=== PATIENT | female | born 2000 | race Hispanic/Latino ===

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

== ENCOUNTER 2019-05-31 11:39 | Inpatient (IN) | payer MEDICAID, SELFPAY ==
[~2019-05-31 11:39] MED LIST: Bupivacaine 0.25% HCL 30 ML VIAL ONE
--- NOTE | 2019-05-31 13:35 | PDOC.FPROB ---
FMR OB H&P: HPI - History of Present Illness Chief Complaint: Vaginal Spotting, Cramping Indentification: History of Present Illness: Patient is a 19 y/o female at 38.4W EGA by 1st Trimester US who presents to L&D for evaluation of vaginal bleeding. Patient states that she has also noticed very mild vaginal spotting when she wipes following urination since yesterday evening, and thinks that she bleeding has increased slightly in amount. Associated symptoms include lower ABD pain that is characterized as crampy but sporadic, low in intensity, and without radiation. Patient states that she had sexual intercourse with her the previous evening, but denies a loss of movement, gush of fluids, recent trauma, dysuria, new- onset vaginal itching or lesions, and margareth hematuria. Patient states that her course has been uncomplicated thus far. Per chart review, there was concern at her dating US that her cervix was open and may have been incompetent based on her history of 2 1st Trimester SABs, however MFM confirmed via 2nd Trimester US that her cervix was closed and long and that there was no evidence for placenta previa or cervical incompetence. Primary Care Physician: HELGA Muir MD FMR OB H&P: Current - Care : 3 Para: 0020 Gestational age: 38.4 Due date: 06/10/2019 Dating Criteria: LMP c/w 6.4 wk sono Course/Complications: See HPI - OB Labs Blood type: B RH: positive Antibody Screen: negative HIV: negative RPR: negative HepBsAg: negative Rubella: immune Gonorrhea: negative Chlamydia: negative 1 hour gtt: 165 3 hour GTT: 94/168/135/101 A1c: 5.0 GBS: negative H&H: .8 FMR OB H&P: History - Past Medical History PMH: None - OB History OB History: hx of 2 first trimester SAB hx of incompetent cervix-seen by MFM this and had normal cervix, anterior placenta, normal cervical length. Was initially on progesterone but was d/c'd after seeing MFM. - Surgical History Sx History: Surgical Removal of Eyelid Cysts (2018) - Social History Social History: Denies x3 - Family History Family History: HTN (Mother) FMR OB H&P: Medications - Current Home Medications: Medication Instructions Recorded Confirmed Type No Known 05/31/19 05/31/19 History Allergies/Adverse Reactions: Allergies Allergy/AdvReac Type Severity Reaction Status Date / Time No Known Allergies Allergy Verified 05/31/19 12:21 FMR OB H&P: ROS - Review of Systems General: denies: fever/chills, weight/appetite/sleep changes, fatigue Eyes: denies: vision changes, floaters ENT: denies: rhinorrhea, frequent nose bleed Cardiovascular: denies: chest pain Respiratory: denies: shortness of breath Gastrointestinal: reports: cramping. denies: abdominal pain, nausea, vomiting, diarrhea Genitourinary (Female): reports: vaginal bleeding, vaginal pressure. denies: dysuria, hematuria, vaginal discharge Neurologic: denies: syncope, loss of counsciousness Integumentary: denies: itching, lesions FMR OB H&P: Vital Signs - Maternal Vital signs: Vital Signs - First Documented Temp Pulse Resp BP Pulse Ox 98.8 F 104 H 18 124/84 100 05/31/19 12:12 05/31/19 12:12 05/31/19 12:12 05/31/19 12:12 05/31/19 12:12 - Heart Tones Baseline: 160 Variability: moderate Acceleration: present Deceleration: absent Category: category 1 FMR OB H&P: Physical Exam - Physical Exam General: NAD HEENT: normocephalic and atraumatic, PERRLA, EOMI, MMM, conjunctiva clear, no scleral icterus, grossly normal vision, grossly normal hearing, normal nasal mucosa, oropharynx clear Neck: supple, FROM, trachea midline, no LAD Chest: non-tender to palpation, no lesions Breast: symmetric Heart: RRR, normal S1/S2, no murmurs/rubs/gallops, pulses present, no edema General: CTAB, no respiratory distress, good air movement, no rales/rhonchi, no wheezing, no retractions Abdomen: gravid, non-tender, no masses, no hernias Musculoskeletal: pulses present, FROM in all four extremities, no misalignment/ asymmetry, no atrophy Neurological: no clonus, no tremor, no focal deficit Skin: no rash, no jaundice Lymphatic: no unusual bruising or bleeding, no purpura, no petechia, no LAD Psychiatric: intact recent and remote memory, normal mood and affect - Pelvic Exam Vulva: normal hair distribution, no masses, no lesions, normal rugae Cervix: no masses, no lesions SVE: /-1 Mann score: 8 Presentation: Vertex FMR OB H&P: A/P - Problem List (1) Vaginal bleeding during Current Visit: Yes Status: Acute Code(s): O46.90 - ANTEPARTUM HEMORRHAGE, UNSPECIFIED, UNSPECIFIED TRIMESTER (2) Intrauterine Current Visit: Yes Status: Acute Code(s): Z34.90 - ENCNTR FOR SUPRVSN OF NORMAL , UNSP, UNSP TRIMESTER (3) History of spontaneous Current Visit: Yes Status: Acute Code(s): Z87.59 - PERSONAL HISTORY OF COMP OF PREG, CHLDBRTH AND THE PUERP Disposition: Patient is a 19 y/o who presents to L&D for evaluation of vaginal bleeding and abdominal pain. 1. Vaginal Bleeding Affecting -Patient recently had sexual intercourse but denies symptoms suspicious for infection or SROM -Per chart review, no evidence of structural abnormalities noted on previous examinations -Associated with lower ABD cramping -Maternal VSS w/ an unremarkable physical exam -UA: Pending 2. SIUP -Unremarkable course -GBS: Negative -CTX Q2-5M on admission - slowed to Q10M at time of evaluation -Category 1 Tracing -Vertex presentation confirmed via bedside US -Speculum Exam (1329): Unable to fully visualize cervix, minimal blood noted within vaginal vault with mixed mucous throughout -SVE (133): /-1 3. Hx of Multiple SABs -Per chart review, no additional recommendations from M PCP: PNC - Dr. Muir Dispo: Patient is currently stable on L&D for additional observation of vaginal bleeding and lower ABD pain. Will perform additional SVE in 2H in order to assess for cervical change - will alter plan accordingly at that time. Expected LOS < 24H Discussion: Date/Time: 05/31/19 1335 This H&P was discussed with [] and [] who agree with the above documentation and plan. Addendum - Attending - Attending Attestation Date/Time: 06/01/19 0801 I personally evaluated the patient and discussed the management with Dr. De Oliveira yesterday afternoon. I agree with the History, Examination, Assessment and Plan documented above with any addition or exceptions noted below.
[2019-05-31] MEDS ORDERED: hydrALAZINE 20 MG/ML VIAL SLOW IVP PRN ×2 (13:39→19:29)
[2019-05-31 15:13] LABS: Bacteria/HPF None Seen HPF (None Seen); Bilirubin Negative (Negative); Blood, Urine Trace (Negative); Clarity Clear (Clear); Glucose, Urine (Dipstick) Normal (Negative); Leukocyte Negative Leu/uL (Negative); Nitrite Negative (Negative); Protein, Urine (Dipstick) Negative (Neg-Trace); Squamous Epithelial 0-3 HPF (0-3); Urobilinogen Normal mg/dL (Less than 2); WBC/HPF 0-3 HPF (0-3)
--- NOTE | 2019-05-31 16:00 | PDOC.LDPN ---
Labor & Delivery Progress Note - Subjective Subjective: comfortable, no concerns - Objective Vital signs reviewed and normal: yes General: NAD Uterine fundus: non tender Dilation: 5 Effacement: 75% Station: -1 FHT: category 1, variability present, absent or minimal variables [place] contractions every: Q7-10M - Assessment (1) Vaginal bleeding during Code(s): O46.90 - ANTEPARTUM HEMORRHAGE, UNSPECIFIED, UNSPECIFIED TRIMESTER Current Visit: Yes Status: Acute (2) Intrauterine Code(s): Z34.90 - ENCNTR FOR SUPRVSN OF NORMAL , UNSP, UNSP TRIMESTER Current Visit: Yes Status: Acute (3) History of spontaneous Code(s): Z87.59 - PERSONAL HISTORY OF COMP OF PREG, CHLDBRTH AND THE PUERP Current Visit: Yes Status: Acute Plan: continue plan of care -: Labor Check Patient is a 19 y/o who presents to L&D for evaluation of vaginal bleeding and abdominal pain. 1. Vaginal Bleeding Affecting -Patient recently had sexual intercourse but denies symptoms suspicious for infection or SROM -Per chart review, no evidence of structural abnormalities noted on previous examinations -Associated with lower ABD cramping -Maternal VSS w/ an unremarkable physical exam -UA: WNL 2. SIUP -Unremarkable course -GBS: Negative -CTX Q7-10M at this time -Category 1 Tracing -Vertex presentation confirmed via bedside US -Speculum Exam (1330): Unable to fully visualize cervix, minimal blood noted within vaginal vault with mixed mucous throughout -SVE (1330): 4/70/-1 -SVE (1545): 5/70/-1 3. Hx of Multiple SABs -Per chart review, no additional recommendations from [facility] PCP: HELGA - Dr. Muir Dispo: Patient is currently stable on L&D following initial evaluation of vaginal bleeding and lower ABD pain. Cervical change in light of ongoing contractions is indicative of labor progression. Will admit at this time for active management of labor and continue to monitor maternal and vital signs as per above. Expected LOS > 48H.
[2019-05-31] MEDS ORDERED: Ondansetron PF 4 MG/2 ML Vial IVP PRN ×2 (19:29→22:27)
[2019-05-31] MEDS ORDERED: Butorphanol Tartrate 1 MG/ML VIAL SLOW IVP PRN (19:29)
[2019-05-31] MEDS ORDERED: Lidocaine 1% (PF) 30 ML VIAL SC PRN (19:29)
[2019-05-31] MEDS ORDERED: NS / Oxytocin 40 units/1000ml 1,000 ML IV PRN (19:29)
[2019-05-31] MEDS ORDERED: Promethazine HCl 25 MG/ML VIAL IM PRN ×2 (19:29→22:27)
[2019-05-31] MEDS ORDERED: Acetaminophen 500 MG TAB PO PRN (19:29)
[2019-05-31 19:55] LABS: Hemoglobin 12.3 g/dL (12.0-16.0); Mean Corpuscular HGB CONC 34.2 g/dL (32.0-36.0); Mean Corpuscular Hemoglobin 29.2 pg (25.0-35.0); Mean Corpuscular Volume 85.5 fL (78.0-98.0); Mean Platelet Volume 12.6 fL (7.4-10.4); Platelet Count 106 thou/uL (130-400); Red Blood Cell (RBC) Count 4.21 mill/uL (4.00-5.20); White Blood Cell (WBC) Count 11.7 thou/uL (4.8-10.8)
--- NOTE | 2019-05-31 20:23 | PDOC.LDPN ---
Labor & Delivery Progress Note - Subjective Subjective: painful contractions - Objective Vital signs reviewed and normal: yes General: NAD Uterine fundus: palpable contractions SVE: 5.5/-1 FHT: category 1 [place] contractions every: 2-5 min AROM: clear fluid Plan: continue plan of care -: Patient is a 19 y/o Latent Labor transitioning to Active Labor -Unremarkable course -GBS: Negative -CTX Q2-5M at this time and increasing in severity -Category 1 strip -Vertex presentation confirmed via bedside US -SVE (1944): - -AROM with clear fluid 1944 -admit for labor, latent Hx of Multiple SABs -Per chart review, no additional recommendations from M PCP: HELGA - Dr. Muir Dispo: Admit for labor with signs of latent labor transitioning to active labor. Continue routine labor management. Addendum - Attending - Attending Attestation Date/Time: 05/31/192132 I personally evaluated the patient and discussed the management with Dr. Joyce. I agree with the History, Examination, Assessment and Plan documented above with any addition or exceptions noted below.
--- NOTE | 2019-05-31 20:27 | PDOC.LDPN ---
Labor & Delivery Progress Note - Subjective Subjective: comfortable - Objective Vital signs reviewed and normal: yes General: NAD, resting, breathing through contractions Uterine fundus: non tender SVE: /-1 Dilation: 5 Effacement: 75% Station: -1 FHT: category 1, variability present [place] contractions every: 3 min Other exam findings: intact membranes Plan: continue plan of care -: Patient is a 19 y/o #Latent Labor transitioning to Active Labor -Unremarkable course -GBS: Negative -CTX Q3M at this time and increasing in severity -Category 1 strip -Vertex presentation confirmed via bedside US -SVE (1800): -consider AROM at next check, pending if cervical change #Hx of Multiple SABs -Per chart review, no additional recommendations from MFM PCP: HELGA - Dr. Muir Dispo: Stable, continue to monitor for another 2 hours with another check at that time. Patient with signs of latent labor transitioning to active labor. Continue routine labor management.
[2019-05-31 20:32] LABS: Syphilis Antibody Nonreactive (Nonreactive); Syphilis Antibody Index 0.02 S/CO (<1.00 Non-Reactive)
[2019-05-31 20:33] LABS: HBSAg Index 0.22 S/CO (0-0.99); Hep B Surf Ag Non-Reactive S/CO (NonReactive)
[2019-05-31] MEDS ORDERED: Fentanyl 4 mcg/Bup 0.1% Cadd 100 ML ONE (21:11)
[2019-05-31 21:20] VITALS: BMI 25.7
[2019-05-31] MEDS ORDERED: Penicillin G Potassium 5 MILL.UNITS VIAL ONE (21:32)
[2019-05-31] MEDS ORDERED: EPHEDRINE 25 MG/5 ML SYRINGE SLOW IVP PRN (22:27)
[2019-05-31] MEDS ORDERED: Naloxone HCl 0.4 mg/ml Vial IVP PRN ×2 (22:27)
[2019-05-31] MEDS ORDERED: diphenhydrAMINE 50 MG/ML VIAL IVP PRN (22:27)
[2019-05-31] MEDS ORDERED: Acetaminophen 325 MG TAB PO PRN (22:27)
[2019-05-31] MEDS ORDERED: Lactated Ringer's 500 ML IV PRN (22:27)
[2019-05-31] MEDS ORDERED: Fentanyl 4 mcg/Bupivacaine 0.1% Cassette 100 ML EPIDURAL SCH (22:30)
[2019-05-31] MEDS ORDERED: Communication Order-Pharmacy FS SCH (22:30)
[2019-05-31] MEDS: Dextrose 5%-Lactated Ringers 1,000 ML IV SCH (22:41)
[2019-06-01] MEDS ORDERED: NS / Oxytocin 40 units/1000ml 1,000 ML ONE (00:19)
[2019-06-01] MEDS ORDERED: Lidocaine 1% (PF) 30 ML VIAL ONE (00:19)
--- NOTE | 2019-06-01 02:31 | PDOC.LDPN ---
Labor & Delivery Progress Note - Subjective Subjective: comfortable, vaginal pressure - Objective Vital signs reviewed and normal: yes General: NAD, resting, breathing through contractions Uterine fundus: non tender SVE: 2:30 Dilation: 10 Effacement: 100% Station: 1+ FHT: category 1, variability present [place] contractions every: 2 minutes AROM: clear fluid - Assessment (1) Intrauterine Code(s): Z34.90 - ENCNTR FOR SUPRVSN OF NORMAL , UNSP, UNSP TRIMESTER Current Visit: Yes Status: Acute Plan: continue plan of care -: Patient is a 19 y/o @ 38.5 wks Active Labor -Unremarkable course -GBS: Negative -Category 1 strip -SVE 2:30- 10/100/+1 -AROM with clear fluid 1944 -admit for labor, latent Hx of Multiple SABs -Per chart review, no additional recommendations from M
[2019-06-01] MEDS ORDERED: Methylergonovine 0.2 MG/ML VIAL IM PRN (02:32)
[2019-06-01] MEDS ORDERED: Milk Of Magnesia 30 ML UDCUP PO PRN (02:32)
[2019-06-01] MEDS ORDERED: Misoprostol 200 MCG TAB VAG PRN (02:32)
[2019-06-01] MEDS ORDERED: Benzocaine-Menthol 82.5 ML CAN TOP PRN (02:32)
[2019-06-01] MEDS ORDERED: Bisacodyl 10 MG SUPP PR PRN (02:32)
[2019-06-01] MEDS ORDERED: Methylergonovine 0.2 MG TAB PO PRN (02:32)
[2019-06-01] MEDS ORDERED: Lanolin Ointment 7 GM TUBE TOP PRN (02:32)
[2019-06-01] MEDS ORDERED: Preparation H Ointment 57 gram tube RC PRN (02:32)
[2019-06-01] MEDS ORDERED: diphenhydrAMINE 25 MG CAP PO PRN (02:32)
--- NOTE | 2019-06-01 02:37 | PDOC.LDPN ---
Labor & Delivery Progress Note - Subjective Subjective: comfortable, no concerns - Objective Vital signs reviewed and normal: yes General: NAD, resting, breathing through contractions Uterine fundus: non tender SVE: 80/-2 Dilation: 7 Effacement: 75% Station: -2 FHT: category 1, variability present [place] contractions every: 2-3 min Plan: continue plan of care -: Patient is a 19 y/o @ 38.5 wks Active Labor -Unremarkable course -GBS: Negative -Category 1 strip, FHT 140 -SVE 22:30- 80/-2 -AROM with clear fluid 1944 -admit for labor, latent Hx of Multiple SABs -Per chart review, no additional recommendations from MFM Dispo: Stable, next check in about 2 hours. Continue to monitor.
--- NOTE | 2019-06-01 02:39 | PDOC.LDPN ---
Labor & Delivery Progress Note - Subjective Subjective: comfortable, no concerns - Objective Vital signs reviewed and normal: yes General: NAD, resting, breathing through contractions Uterine fundus: non tender SVE: 9/100/0 Dilation: 9 Effacement: 100% Station: 0 FHT: category 1 (FHT 140), variability present [place] contractions every: 2 min Plan: continue plan of care -: Patient is a 19 y/o @ 38.5 wks Active Labor -Unremarkable course -GBS: Negative -Category 1 strip, FHT 140 -SVE 00:15 9/100/0 -AROM with clear fluid 1944 -admit for labor, latent Hx of Multiple SABs -Per chart review, no additional recommendations from MFM Dispo: Stable, next check in about 1 hours. Continue to monitor.
[2019-06-01] MEDS: Dextrose 5%-Lactated Ringers 1,000 ML IV SCH (04:33)
--- NOTE | 2019-06-01 04:41 | DN ---
DATE OF PROCEDURE: 06/01/2019 DELIVERING PHYSICIANS: Include: Dr. Larisa Mello, PGY-1, Dr. Jose L Muir, PGY-3. ATTENDING PHYSICIAN: Andrey Myrick M.D. PROCEDURE PERFORMED: Spontaneous vaginal delivery and also second-degree vaginal repair. ANESTHESIA: Epidural. ESTIMATED BLOOD LOSS: 400. QBL: Pending. PREOPERATIVE DIAGNOSIS: Term intrauterine , in labor. POSTOPERATIVE DIAGNOSES: 1. Term intrauterine , delivered. 2. Term intrauterine , in labor. INDICATIONS: A 19-year-old female, G3, P0-0-2-0, presented in active labor. DELIVERY NOTE: This is a 19-year-old female, G3, P0-0-2-0 at 38 and 5 weeks, who delivered a viable female infant at 0313 hours following an uneventful antepartum course, a vigorous female was delivered over an intact perineum in the occiput anterior position. Anterior shoulder and remainder of the body delivered. No nuchal cord. The head was held down. Mouth and nares were bulb suctioned. Cord clamped and cut and cord blood collected. Placenta delivered intact with 3- vessel cord noted. Fundal massage was performed. The fundus was firm. Cervix and vagina were inspected and there was found to be a second-degree vaginal laceration and also two sidewall lacerations, one on the right and one on the left. Lacerations were noted and repaired with 3-0 chromic suture in the usual fashion with good approximation and hemostasis. went to nursery in good condition for routine care. Apgars were 8 and 9 at 1 and 5 minutes respectively. The patient tolerated delivery well and went to after routine recovery care. Job ID: [id number] Attending addendum: Present for entirety of delivery. [facility] CENTERMaya
[2019-06-01] MEDS: Ibuprofen 800 MG TAB PO SCH ×3 (04:55→22:21)
[2019-06-01] MEDS ORDERED: Adacel (T-DAP) 0.5 ML SYRINGE IM ONE (09:00)
[2019-06-01] MEDS: Docusate Calcium (SURFAK) 240 MG CAP PO SCH ×2 (10:41→22:21)
[2019-06-01] MEDS: Ferrous Sulfate 325 MG TAB PO SCH ×2 (10:41→15:10)
[2019-06-01] MEDS: Prenatal Vitamin 1 TAB PO SCH (10:41)
[2019-06-02] MEDS: Ibuprofen 800 MG TAB PO SCH ×2 (06:33→13:18)
--- NOTE | 2019-06-02 07:13 | PDOC.PP ---
Post Progress Note Post Day #: 1 Subjective: Pt doing well. Reports pain well controlled. tolerating PO. Denies any n/v/d/c. Denies any fever or chills. Denies any chest pain, SOB or leg swelling. Reports lochia normal PO intake tolerated: yes Flatus: yes Ambulation: yes Weight Weight 61.689 kg - Physical Examination General: NAD Cardiovascular: no m/r/g, RRR Respiratory: clear to auscultation bilaterally, non-labored breathing Abdominal: + bowel sounds, lochia (reported same as normal period), no distention, appropriately TTP Fundus firm & at: umbilicus Extremities: negative homans (B) Perineum: Intact, No swelling or drainage noted Neurological: no gross focal deficits Psychiatric: A&Ox3, normal affect Result Diagrams: 05/31/19 19:39 Additional Labs: Post Labs Blood Type B POSITIVE 05/31/19 19:39 Hep Bs Antigen Non-Reactive S/CO (NonReactive) 05/31/19 19:39 (1) Intrauterine Code(s): Z34.90 - ENCNTR FOR SUPRVSN OF NORMAL , UNSP, UNSP TRIMESTER Status: Resolved - Assessment/Plan 19 yo ->1 delivered KIRAN Morejon via on 06/01/19 @ 3:13. Had 2nd degree perineal laceration and 2 vaginal sidewall lacs. Post -Routine post care. -Perineum intact. No sign of drainage, redness or swelling. -Pain well controlled. Continue current regimen. -- consulted dispo: New time mother. Mayankior for 48 hours pp. D/C likely tmrw. Addendum - Attending - Attending Attestation Date/Time: 06/02/19 1210 I personally evaluated the patient. I agree with the History, Examination, Assessment and Plan documented above with any addition or exceptions noted below.
[2019-06-02] MEDS: Prenatal Vitamin 1 TAB PO SCH (09:38)
[2019-06-02] MEDS: Docusate Calcium (SURFAK) 240 MG CAP PO SCH (09:39)
[2019-06-02] MEDS: Ferrous Sulfate 325 MG TAB PO SCH ×2 (09:39→17:33)
[2019-06-02 11:44] VITALS: BP 109/63; TEMP 98.6
== END 2019-06-02 18:51 | disposition home or self-care (01) | DRG 807 ==
LOC: L&D/OP 11:39 → L&D-LIB 19:56 → 3SE 06-01 11:58
PROVIDERS: ADMIT Family Medicine; ATTEND Family Medicine
PROC: 10907ZC Drainage of Amniotic Fluid, Therapeutic from Products of Conception, Via Natural or Artificial Opening (ICD-10-PCS; 2019-05-31)
PROC: 10E0XZZ Delivery of Products of Conception, External Approach (ICD-10-PCS; principal; 2019-06-01)
PROC: 0KQM0ZZ Repair Perineum Muscle, Open Approach (ICD-10-PCS; 2019-06-01)
DX: O70.1 Second degree perineal laceration during delivery (principal); Z37.0 Single live birth; Z3A.38 38 weeks gestation of pregnancy
CPT/HCPCS: 36415; 51702; 81001; 85027; 86780; 86850; 86900; 86901; 87086; 87340; 99285; J2001; J2540; S0020

== ENCOUNTER 2022-06-22 21:01 | Emergency (ER) | payer MEDICAID ==
[2022-06-22 22:07] LABS: Bacteria/HPF None Seen HPF (None Seen); Bilirubin Negative (Negative); Blood, Urine 3+ (Negative); Clarity Turbid (Clear); Glucose, Urine (Dipstick) Normal (Negative); Ketone, Urine Negative (Negative); Leukocyte Negative Leu/uL (Negative); Nitrite Negative (Negative); Protein, Urine (Dipstick) 20 mg/dL (Neg-Trace); RBC/HPF Greater than 50 HPF (0-3); Urobilinogen Normal mg/dL (Less than 2); WBC/HPF None Seen HPF (0-3)
[2022-06-23 00:33] LABS: #Lymphocytes 2.2 thou/uL (1.20-3.40); #Monocytes 0.9 thou/uL (0.11-0.59); #Neutrophils 8.3 thou/uL (1.40-6.50); %Basophils 0.3 % (0.0-1.0); %Eosinophils 0.4 % (0.0-10.0); %Lymphocytes 19.4 % (21.0-51.0); %Monocytes 7.5 % (0.0-10.0); %Neutrophils 72.5 % (42.0-75.0); Hemoglobin 11.8 g/dL (12.0-16.0); Mean Corpuscular HGB CONC 36.4 g/dL (32.0-36.0); Mean Corpuscular Hemoglobin 32.3 pg (27.0-31.0); Mean Corpuscular Volume 88.7 fl (78.0-98.0); Mean Platelet Volume 10.4 fL (7.4-10.4); Platelet Count 176 10x3/uL (130-400); Red Blood Cell (RBC) Count 3.65 mill/uL (4.20-5.40); White Blood Cell (WBC) Count 11.5 10x3/uL (4.8-10.8)
== END 2022-06-23 02:13 | disposition home or self-care (01) ==
LOC: ERS 21:01
DX: O03.9 Complete or unspecified spontaneous abortion without complication (principal); D72.829 Elevated white blood cell count, unspecified; Z3A.01 Less than 8 weeks gestation of pregnancy
CPT/HCPCS: 36415; 76856; 81003; 81015; 84702; 85025; 86900; 86901; 87086

== ENCOUNTER 2023-09-10 10:37 | Outpatient (CLI) | payer OTHER | END 2023-09-10 10:38 | disposition home or self-care (01) | LOC: BICULT 10:37 | PROVIDERS: ATTEND Family Medicine | DX: N96 Recurrent pregnancy loss (principal); R93.89 Abnormal findings on diagnostic imaging of other specified body structures | CPT/HCPCS: 76856 ==